=== PATIENT | male | born 1995 | race Caucasian/White ===

== ENCOUNTER 2021-09-07 14:25 | Emergency (ER) | payer SELFPAY ==
--- NOTE | 2021-09-07 14:29 | XRR_ITS ---
PROCEDURE INFORMATION: Exam: XR Chest Exam date and time: 09/07/2021 2:47 PM Age: 26 years old Clinical indication: Pain; Angina pectoris; Additional info: Chest pain TECHNIQUE: Imaging protocol: Radiologic exam of the chest. Views: 2 views. COMPARISON: No relevant prior studies available. FINDINGS: Lungs: Unremarkable. No consolidation. Pleural spaces: Unremarkable. No pleural effusion. No pneumothorax. Heart/Mediastinum: Unremarkable. No cardiomegaly. Bones/joints: Unremarkable. XR/XR chest 2V* [id number] IMPRESSION: No acute findings.
--- NOTE | 2021-09-07 14:42 | PC.NURSE ---
called to lobby no answer.
[2021-09-07 15:01] VITALS: BP 96/62; PULSE 66; RESP 16; TEMP 36.2; O2SAT 98; BMI 21.1
--- NOTE | 2021-09-07 15:02 | ECG_ITS ---
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 Measurements Intervals [place] Rate: 76 P: 18 WV: 129 QRS: 89 QRSD: 84 T: 67 QT: 357 QTc: 403 Interpretive Statements SINUS RHYTHM POSSIBLE RIGHT VENTRICULAR CONDUCTION DELAY [RSR (QR) IN V1/V2] EARLY REPOLARIZATION [ST ELEVATION WITH NORMALLY INFLECTED T-WAVE] No previous ECG available for comparison Electronically Signed On 09-07-2021 21:14:14 CDT by Ian Ray M.D. [id number]
[2021-09-07 15:28] LABS: Basophils % 0.3 %; Eosinophils # 0.3 10^3/uL (0.0-0.8); Eosinophils % 2.8 %; Hematocrit 41.7 % (42.0-52.0); Hemoglobin 13.7 g/dL (11.7-16.6); Lymphocytes # 3.4 10^3/uL (0.8-4.8); Lymphocytes % 37.2 %; Mean Corpuscular HGB Conc 32.9 g/dL (30.0-36.0); Mean Corpuscular Hemoglobin 28.4 pg (28.0-34.0); Mean Corpuscular Volume 86.5 fl (80-94); Mean Platelet Volume 9.8 fL (7.4-10.4); Monocytes # 0.7 10^3/uL (0.2-0.9); Monocytes % 8.1 %; Neutrophils # 4.64 10^3/uL (1.8-7.7); Neutrophils % 51.3 %; Nucleated Red Blood Cells % 0 %; Platelet Count 235 10^3/cmm (130-400); Red Blood Count 4.82 10^6/uL (4.1-5.3); Red Cell Distribution Width 11.8 % (12.1-15.1); White Blood Count 9.1 10^3/uL (4.0-10.0)
[2021-09-07 15:50] LABS: Troponin(5th) Baseline 6 ng/L (0-15)
[2021-09-07 15:53] LABS: Alanine Aminotransferase 7 U/L (0-41); Albumin Level 4.5 g/dL (3.5-5.2); Alkaline Phosphatase 86 IU/L (40-130); Anion Gap 15.9 (5-19); Aspartate Amino Transferase 10 U/L (0-40); Blood Urea Nitrogen 18 mg/dL (6-20); Calcium 9.5 mg/dL (8.5-10.5); Carbon Dioxide 23 mmol/L (22-29); Chloride 106 mmol/L (98-107); Glucose 98 mg/dL (65-115); Osmolality Calculated 294 mOsm/kg (285-295); Potassium 3.9 mmol/L (3.5-5.1); Sodium 141 mmol/L (136-145); Total Bilirubin 0.9 mg/dL (0.15-1.2); Total Protein 6.5 g/dL (6.6-8.7)
[2021-09-07 16:33] VITALS: BP 100/65; PULSE 72; RESP 16; O2SAT 99
--- NOTE | 2021-09-07 17:07 | ECG_ITS ---
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 Measurements Intervals [place] Rate: 62 P: 42 DE: 143 QRS: 82 QRSD: 88 T: 74 QT: 367 QTc: 373 Interpretive Statements SINUS RHYTHM EARLY REPOLARIZATION [ST ELEVATION WITH NORMALLY INFLECTED T-WAVE] Compared to ECG 09/07/2021 15:02:13 No significant changes Electronically Signed On 09-08-2021 6:47:41 CDT by Ian Ray M.D. [id number]
--- NOTE | 2021-09-07 17:38 | PC.NURSE ---
CALL TO LOBBY NO ANSWER
--- NOTE | 2021-09-07 17:42 | W.ED.GENADLT ---
HPI - General Adult General: Chief complaint: Chest Pain Stated complaint: Chest pain on left side Time Seen by Provider: 09/07/21 17:40 History of Present Illness: CC: Chest Pain HPI: This is a 26 yo patient hx of prior chest pain presenting to the ED complaining of acute sudden onset intermittent sharp chest pain since 9am. Patient tells me that she was sitting down when this all happened. Since then, he has had anterior chest pain. Patient says that about a year ago, he has had similar pain after lifting weights. Patient has a family history costochondritis. No associated with shortness of breath, chest pain or dyspnea on exertion. Pain is not tearing in nature and does not radiate to the back. Pain not associated with vomiting or PO intake. Denies any recent sympathomimetic drug use. Patient denies any cough. Denies palpitations, dysphagia, diaphoresis, radiation of pain to bilateral arms, jaw. Denies F/N/V/D. Patient denies any recent immobility, surgery, unilateral leg swelling, or prior PE. Patient denies any orthopnea. Onset: 9am ago Duration: ongoing since 9am Location: home Severity: mild/moderate Associated symptoms: Reports chest pain; Deny dyspnea, nausea, rash, palpitations or vomiting Review of Systems Const: Denies: fever(s) or chills Eyes: Denies: change in vision ENMT: Denies: mouth pain Card: Reports: chest pain; Denies: palpitations Resp: Denies: dyspnea or non-productive cough GI: Denies: abdominal pain, nausea, vomiting or diarrhea : Denies: dysuria Musc: Denies: extremity pain Skin/Breast: Denies: rash or new lesions Neuro: Denies: weakness in extremities Psych: Reports: other (Normal mood) Mathew/Lymph: Denies: easy bruising PFSH ED PFSH: Medical History Chest pain Social History Smoking and tobacco status: never smoked Alcohol intake: never Substance/Drug Use: never Physical Exam Const: COMMON NORMALS: alert HENMT: COMMON NORMALS: atraumatic HEAD & SCALP: atraumatic MOUTH: moist mucous membranes not abnormal Eye: COMMON NORMALS: EOMs intact bilaterally and conjunctivae normal CONJUNCTIVA: Yes conjunctivae normal Neck/C-Spine: COMMON NORMALS: full ROM and supple Resp: COMMON NORMALS: normal respiratory effort and clear to auscultation bilaterally AUSCULTATION: clear to auscultation bilaterally Cardio: COMMON NORMALS: regular rate RATE: regular rate GI: COMMON NORMALS: Soft to palpation and non-tender PALPATION: Yes Soft to palpation Extremity: COMMON NORMALS: full ROM Neuro: SENSORIUM/ORIENTATION: Yes alert MOTOR EXAM: No Abnormal motor strength present and Other motor observations present (no focal motor deficits) Psych: COMMON NORMALS: speech normal SPEECH: Yes normal speech MOOD & AFFECT: Yes euthymic mood Course Vital Signs: Vital signs: Vital Signs Temperature 97.2 F L 09/07/21 15:01 Pulse Rate 72 09/07/21 17:44 Respiratory Rate 16 09/07/21 17:44 Blood Pressure 109/78 09/07/21 17:44 Pulse Oximetry 100 09/07/21 17:44 Oxygen Delivery Me thod 09/07/21 17:44 MDM - General Adult Medical Decision Making [26]yo patient w/ hx of prior chest pain presenting to the ED with evaluation of new onset sharp chest pain intermittent since 9 AM this morning. Pain is reproducible on the inner border of the left pec. HDS, pulse 2+ radially bilaterally, no signs of fluid overload, AAOx3, neuro exam intact. Given History and Exam today I have no suspicion for ACS, Pneumothorax, Pneumonia, Pulmonary Embolus, Tamponade, Aortic Dissection or other emergent problems as a cause for this presentation. Workup: ECG, CXR, CBC, BMP, Troponin Interventions: T3 Findings: ECG: No overt evidence of STEMI, hyperacute T waves, localizable STD or T wave inversions. No evidence of Brugada?s sign, delta wave, epsilon wave, significantly prolonged QTc, or malignant arrhythmia. No Q waves. Other Labs unremarkable for emergent problems. CXR: Without PTX, PNA, or widened mediastinum Last Stress Test: never Last Heart Catheterization: never HEART Score: 0 PERC: Negative [5:58pm] On reassessment, the patient is HDS, no complaints of persistent chest pain in the ED after evaluation. ECG is non-ischemic. Workup today is unremarkable. Doubt ACS/PE or other emergent causes of chest pain. Doubt ACS/PE or other emergent causes of chest pain. No suspicion for aortic dissection given no widened mediastinum, 2+ upper extremity pulses, or tearing pain. No suspicion for PE given no pleuritic chest pain, recent immobilization or surgery hemoptysis, or other VTE risk factors. EKG is non-ischemic. XR normal. Rx: Tylenol 500mg PRN pain Disposition: Discharge. Strict return precautions discussed with the patient with full understanding. Advised patient to follow up promptly with a primary care provider in 24-48 hrs if the patient has persistent symptoms. Given return instructions for any crushing/tearing chest pain, focal weakness, syncope or any new or concerning issues. Lab Data : 09/07/21 15:15 09/07/21 15:15 Radiology Impressions Chest X-Ray 09/07/21 14:29 IMPRESSION: No acute findings. Laboratory Results WBC 9.1 10^3/uL (4.0-10.0) 09/07/21 15:15 RBC 4.82 10^6/uL (4.1-5.3) 09/07/21 15:15 Hgb 13.7 g/dL (11.7-16.6) 09/07/21 15:15 Hct 41.7 % (42.0-52.0) L 09/07/21 15:15 MCV 86.5 fl (80-94) 09/07/21 15:15 MCH 28.4 pg (28.0-34.0) 09/07/21 15:15 MCHC 32.9 g/dL (30.0-36.0) 09/07/21 15:15 RDW 11.8 % (12.1-15.1) L 09/07/21 15:15 Plt Count 235 10^3/cmm (130-400) 09/07/21 15:15 MPV 9.8 fL (7.4-10.4) 09/07/21 15:15 Neut % (Auto) 51.3 % 09/07/21 15:15 Lymph % (Auto) 37.2 % 09/07/21 15:15 [place] % (Auto) 8.1 % 09/07/21 15:15 Eos % (Auto) 2.8 % 09/07/21 15:15 Baso % (Auto) 0.3 % 09/07/21 15:15 Neut # (Auto) 4.64 10^3/uL (1.8-7.7) 09/07/21 15:15 Lymph # (Auto) 3.4 10^3/uL (0.8-4.8) 09/07/21 15:15 [place] # (Auto) 0.7 10^3/uL (0.2-0.9) 09/07/21 15:15 Eos # (Auto) 0.3 10^3/uL (0.0-0.8) 09/07/21 15:15 Baso # (Auto) 0.0 10^3/uL (0.0-0.1) 09/07/21 15:15 Nucleated RBC % (auto) 0 % 09/07/21 15:15 Nucleated RBCs # 0.0 /100WBC 09/07/21 15:15 Sodium 141 mmol/L (136-145) 09/07/21 15:15 Potassium 3.9 mmol/L (3.5-5.1) 09/07/21 15:15 Chloride 106 mmol/L (98-107) 09/07/21 15:15 Carbon Dioxide 23 mmol/L (22-29) 09/07/21 15:15 Anion Gap 15.9 (5-19) 09/07/21 15:15 BUN 18 mg/dL (6-20) 09/07/21 15:15 Creatinine 0.9 mg/dL (0.7-1.2) 09/07/21 15:15 GFR Calculation 102.0 mL/min (90-130) 09/07/21 15:15 Glucose 98 mg/dL (65-115) 09/07/21 15:15 Calculated Osmolality 294 mOsm/kg (285-295) 09/07/21 15:15 Calcium 9.5 mg/dL (8.5-10.5) 09/07/21 15:15 Total Bilirubin 0.9 mg/dL (0.15-1.2) 09/07/21 15:15 AST 10 U/L (0-40) 09/07/21 15:15 ALT 7 U/L (0-41) 09/07/21 15:15 Alkaline Phosphatase 86 IU/L (40-130) 09/07/21 15:15 Troponin T Baseline 6 ng/L (0-15) 09/07/21 15:15 Total Protein 6.5 g/dL (6.6-8.7) L 09/07/21 15:15 Albumin 4.5 g/dL (3.5-5.2) 09/07/21 15:15 Globulin 2.0 g/dL (1.3-4.6) 09/07/21 15:15 Discharge Plan Discharge Patient Disposition: Home Clinical Impression: Chest pain Condition: Stable Prescriptions: New acetaminophen 500 mg tablet 500 mg PO Q6H PRN (Reason: pain) 5 Days Qty: 20 0RF Discharge Orders: Discharge ED (Routine); Ordered 09/07/21 Ordered By: Rian Haines Discharge Diet: Advance as tolerated Discharge Activity: Increase activity as tolerated Patient Instructions: Chest Pain (ED) Activity Restrictions/Additional Instructions: Come back to the emergency room if your chest pain worsens, have any fever or chills, worsening shortness of breath, worsening exertional lightheadedness, or any new or concerning complaints. Stand Alone Forms: Work/School Release Coding Level of Care Code ED English Faculty Member for Sarah Fwd Exam Comprehensive
[2021-09-07 17:44] VITALS: BP 109/78; PULSE 72; RESP 16; O2SAT 100
[2021-09-07] MEDS: acetaminophen-codeine 300-30mg Tablet 1 TAB PO (18:03)
[2021-09-07 18:05] VITALS: BP 159/78; PULSE 82; RESP 16; O2SAT 100
[2021-09-07 18:47] LABS: Troponin 5 2HR 6.11 ng/L (0-15); Troponin 5 2HR Delta 0.11 ABS# (0-10)
== END 2021-09-07 18:06 | disposition home or self-care (01) ==
PROVIDERS: Family Medicine; Emergency Provider Emergency Medicine
DX: R07.9 Chest pain, unspecified (principal)
CPT/HCPCS: 71046; 80053; 84484; 85025; 93005; 99285

== ENCOUNTER 2022-06-20 18:42 | Emergency (ER) | payer SELFPAY ==
[2022-06-20 18:50] VITALS: BP 115/80; PULSE 84; TEMP 36.7; O2SAT 99; BMI 21.2
--- NOTE | 2022-06-20 18:53 | XRR_ITS ---
PROCEDURE INFORMATION: Exam: XR Chest Exam date and time: 06/20/2022 7:24 PM Age: 27 years old Clinical indication: Pain; Chest pressure; Additional info: Cp TECHNIQUE: Imaging protocol: Radiologic exam of the chest. Views: 1 view. COMPARISON: CR XR chest 2V* [id number] 09/07/2021 2:47 PM FINDINGS: Lungs: Unremarkable. No consolidation. Pleural spaces: Unremarkable. No pleural effusion. No pneumothorax. Heart/Mediastinum: Unremarkable. No cardiomegaly. Bones/joints: Unremarkable. XR/XR chest 1V portable [id number] IMPRESSION: No acute findings.
--- NOTE | 2022-06-20 18:53 | ECG_ITS ---
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 Measurements Intervals [place] Rate: 89 P: 9 DE: 120 QRS: 130 QRSD: 84 T: 91 QT: 323 QTc: 394 Interpretive Statements SINUS RHYTHM POSSIBLE RIGHT VENTRICULAR CONDUCTION DELAY [RSR (QR) IN V1/V2] LEFT POSTERIOR FASCICULAR BLOCK [QRS AXIS > 109, INFERIOR Q] MODERATE ST DEPRESSION [0.05+ mV ST DEPRESSION] INTERPRETATION BASED ON A DEFAULT AGE OF 40 YEARS Compared to ECG 09/07/2021 17:10:01 Left posterior fascicular block now present ST (T wave) deviation now present Early repolarization no longer present Electronically Signed On 06-21-2022 0:17:31 CDT by Ian Ray M.D. [id number] f
[2022-06-20 19:40] LABS: Basophils % 0.4 %; Eosinophils # 0.3 10^3/uL (0.0-0.8); Eosinophils % 2.6 %; Hematocrit 43.8 % (42.0-52.0); Hemoglobin 14.1 g/dL (11.7-16.6); Lymphocytes # 3.5 10^3/uL (0.8-4.8); Mean Corpuscular HGB Conc 32.2 g/dL (30.0-36.0); Mean Corpuscular Hemoglobin 27.6 pg (28.0-34.0); Mean Corpuscular Volume 85.9 fl (80-94); Mean Platelet Volume 9.9 fL (7.4-10.4); Monocytes # 0.8 10^3/uL (0.2-0.9); Monocytes % 8.1 %; Neutrophils # 5.27 10^3/uL (1.8-7.7); Neutrophils % 53.4 %; Nucleated Red Blood Cells % 0 %; Platelet Count 243 10^3/cmm (130-400); Red Cell Distribution Width 12.2 % (12.1-15.1); White Blood Count 9.9 10^3/uL (4.0-10.0)
[2022-06-20 20:01] LABS: Troponin(5th) Baseline 6 ng/L (0-15)
[2022-06-20 20:10] LABS: Alanine Aminotransferase 13 U/L (0-41); Albumin Level 4.7 g/dL (3.5-5.2); Alkaline Phosphatase 94 U/L (40-130); Anion Gap 14.5 (5-19); Aspartate Amino Transferase 12 U/L (0-40); Blood Urea Nitrogen 19 mg/dL (6-20); Carbon Dioxide 25 mmol/L (22-29); Chloride 106 mmol/L (98-107); Globulin 1.8 g/dL (1.3-4.6); Glomerular Filtration Rate 80.3 mL/min (90-130); Glucose 92 mg/dL (65-115); NT Pro B Type Natriuretic Pept 36 pg/mL (0-125); Osmolality Calculated 294 mOsm/kg (285-295); Potassium 4.5 mmol/L (3.5-5.1); Sodium 141 mmol/L (136-145); Total Bilirubin 0.3 mg/dL (0.15-1.2); Total Protein 6.5 g/dL (6.6-8.7)
--- NOTE | 2022-06-26 14:28 | DCPLANNER ---
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
== END 2022-06-20 21:46 | disposition left against medical advice (07) ==
PROVIDERS: Emergency Medicine; Emergency Provider Family Medicine
DX: Z53.21 Procedure and treatment not carried out due to patient leaving prior to being seen by health care provider (principal)
CPT/HCPCS: 36415; 71045; 80053; 83880; 84484; 85025; 93005

== ENCOUNTER 2022-07-21 15:33 | Emergency (ER) | payer SELFPAY ==
[2022-07-21 15:35] VITALS: BP 111/70; PULSE 88; RESP 15; O2SAT 98; BMI 21.2
--- NOTE | 2022-07-21 15:46 | ECG_ITS ---
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 Measurements Intervals [place] Rate: 76 P: 20 RI: 120 QRS: 76 QRSD: 81 T: 52 QT: 358 QTc: 404 Interpretive Statements SINUS RHYTHM WITH SINUS ARRHYTHMIA MODERATE ST DEPRESSION [0.05+ mV ST DEPRESSION] Compared to ECG 06/20/2022 18:46:53 Left posterior fascicular block no longer present ST (T wave) deviation still present Electronically Signed On 07-22-2022 4:57:45 CDT by Vivian Bennett M.D. [id number] f
--- NOTE | 2022-07-21 15:50 | XRR_ITS ---
PROCEDURE INFORMATION: Exam: XR Chest Exam date and time: 07/21/2022 4:03 PM Age: 27 years old Clinical indication: Pain; Chest pressure; Additional info: Cp TECHNIQUE: Imaging protocol: Radiologic exam of the chest. Views: 1 view. COMPARISON: CR (CHEST, ) 06/20/2022 7:24 PM FINDINGS: Lungs: Unremarkable. No consolidation. Pleural spaces: Unremarkable. No pleural effusion. No pneumothorax. Heart/Mediastinum: Unremarkable. No cardiomegaly. Bones/joints: Unremarkable. XR/XR chest 1V portable [id number] IMPRESSION: No acute findings.
--- NOTE | 2022-07-21 16:03 | W.ED.CHESTPA ---
HPI - Chest Pain General: Chief Complaint: Chest Pain Stated Complaint: tightness in chest, head pain, lips numb Time Seen by Provider: 07/21/22 15:50 History of Present Illness: Patient is a 27-year-old male who comes to the ED with chest pain. Symptoms started yesterday around 5 PM while he was at work. Patient says he was lifting some boxes and putting them on a shelf and he started developing chest pain on the left side of his chest. Pain worsens with any movement of his arms or torso. He was still having chest pain throughout the evening and into the night. He woke up and he still had the chest pain. He went to work and all the movement was causing worsening chest pain. Left side of chest is tender to the touch. Today he started developing some shortness of breath, headache, dizziness and tingling around his lower lip. His work told him to come here to the ED to be evaluated. Denies any cardiac history. Patient does admit that he is under a lot of stress currently in his life and asked me if this could be some chest pain due to his stress. denies any known allergies or any past allergic reactions. Denies any other injury or trauma to cause pain. Associated symptoms: Deny abdominal pain, dyspnea, fever(s), nausea, palpitations or vomiting Review of Systems Const: Denies: fever(s), chills or fatigue Eyes: Denies: change in vision or eye discomfort ENMT: Denies: throat pain, odynophagia, nasal discharge or nasal congestion Card: Reports: chest pain; Denies: palpitations, edema, swelling of feet/ankles, dyspnea on exertion or orthopnea Resp: Denies: dyspnea, productive cough or non-productive cough GI: Denies: abdominal pain, nausea, vomiting, diarrhea, constipation or hematochezia : Denies: flank pain, difficulty urinating, dysuria or hematuria Musc: Denies: neck pain, back pain or extremity swelling Skin/Breast: Denies: rash or new lesions Neuro: Denies: headache(s), numbness in extremities or weakness in extremities REPLACED BY [facility] ED PFSH: Medical History Chest pain Surgical History No pertinent past surgical history Social History Smoking and tobacco status: never smoked Alcohol intake: never Substance/Drug Use: never Physical Exam Const: COMMON NORMALS: patient oriented x3, healthy appearing and alert HENMT: COMMON NORMALS: normocephalic HEAD & SCALP: normocephalic MOUTH: Normal oral and palatal mucosa present THROAT: posterior oropharynx normal and uvula midline Neck/C-Spine: COMMON NORMALS: supple GENERAL: Yes normal visual inspection Chest: CHEST: Yes tenderness pectoral muscle on the left diffusely Resp: COMMON NORMALS: normal respiratory effort, No retractions, No use of accessory muscles and clear to auscultation bilaterally AUSCULTATION: clear to auscultation bilaterally Cardio: COMMON NORMALS: regular rate, regular rhythm, S1 normal heart sound present, S2 normal heart sound present, No gallops present (Cardio), No clicks present (Cardio), No murmurs present (Cardio) and Peripheral pulses 2+ throughout RATE: regular rate RHYTHM: regular rhythm HEART SOUNDS: S1 normal heart sound present and S2 normal heart sound present PERIPHERAL PULSES: Peripheral pulses 2+ throughout GI: COMMON NORMALS: Normal to inspection, nondistended, normoactive bowel sounds present, Soft to palpation, non-tender and no masses PALPATION: Yes Soft to palpation : COMMON NORMALS: Yes no CVA tenderness BLADDER/KIDNEY EXAM: Yes no CVA tenderness Back/Pelvis: COMMON NORMALS: no CVA tenderness Extremity: COMMON NORMALS: normal to inspection Neuro: COMMON NORMALS: patient oriented x3 SENSORIUM/ORIENTATION: Yes alert GAIT: Yes Normal gait present Skin: GENERAL SKIN EXAM: dry skin Course Vital Signs: Vital signs: Vital Signs Pulse Rate 88 07/21/22 15:35 Respiratory Rate 18 07/21/22 16:42 Blood Pressure 111/70 07/21/22 15:35 Pulse Oximetry 100 07/21/22 16:42 Oxygen Delivery Me thod Room Air 07/21/22 15:35 MDM - Chest Pain Medical Decision Making Patient is a 27-year-old male who comes to the ED with chest pain. Symptoms started yesterday around 5 PM while he was at work. Patient says he was lifting some boxes and putting them on a shelf and he started developing chest pain on the left side of his chest. Pain worsens with any movement of his arms or torso. He was still having chest pain throughout the evening and into the night. He woke up and he still had the chest pain. He went to work and all the movement was causing worsening chest pain. Left side of chest is tender to the touch. Today he started developing some shortness of breath, headache, dizziness and tingling around his lower lip. His work told him to come here to the ED to be evaluated. Denies any cardiac history. Patient does admit that he is under a lot of stress currently in his life and asked me if this could be some chest pain due to his stress. denies any known allergies or any past allergic reactions. Denies any other injury or trauma to cause pain. Vitals are stable. Patient appears nontoxic and in no acute distress. He has reproducible chest pain with palpation throughout the left pectoral muscle. His lungs are clear to auscultation bilaterally and the rest of exam is benign. Labs are all unremarkable. Troponin negative. Chest x-ray showed no acute findings. EKG showed normal sinus rhythm with no ST segment ovation or depression seen. Patient was given IV fluids, nausea meds, pain meds and steroid here in the ED. Given patient's chest pain is reproducible with palpation of the left pectoral muscle, he was diagnosed with noncardiac chest pain that is likely musculoskeletal in nature and could likely be due to stress as well. Stable for discharge home and told to follow-up with PCP in the next week for reevaluation. Return to ED precautions given. Patient understood and agreed with plan. Lab Data I reviewed the patient's lab results. 07/21/22 16:07 07/21/22 16:07 Radiology Impressions Chest X-Ray 07/21/22 15:50 IMPRESSION: No acute findings. Laboratory Results WBC 9.0 10^3/uL (4.0-10.0) 07/21/22 16:07 RBC 4.95 10^6/uL (4.1-5.3) 07/21/22 16:07 Hgb 14.2 g/dL (11.7-16.6) 07/21/22 16:07 Hct 42.7 % (42.0-52.0) 07/21/22 16:07 MCV 86.3 fl (80-94) 07/21/22 16:07 MCH 28.7 pg (28.0-34.0) 07/21/22 16:07 MCHC 33.3 g/dL (30.0-36.0) 07/21/22 16:07 RDW 12.0 % (12.1-15.1) L 07/21/22 16:07 Plt Count 234 10^3/cmm (130-400) 07/21/22 16:07 MPV 9.8 fL (7.4-10.4) 07/21/22 16:07 Neut % (Auto) 58.4 % 07/21/22 16:07 Lymph % (Auto) 30.0 % 07/21/22 16:07 [place] % (Auto) 8.8 % 07/21/22 16:07 Eos % (Auto) 2.0 % 07/21/22 16:07 Baso % (Auto) 0.6 % 07/21/22 16:07 Neut # (Auto) 5.23 10^3/uL (1.8-7.7) 07/21/22 16:07 Lymph # (Auto) 2.7 10^3/uL (0.8-4.8) 07/21/22 16:07 [place] # (Auto) 0.8 10^3/uL (0.2-0.9) 07/21/22 16:07 Eos # (Auto) 0.2 10^3/uL (0.0-0.8) 07/21/22 16:07 Baso # (Auto) 0.1 10^3/uL (0.0-0.1) 07/21/22 16:07 Nucleated RBC % (auto) 0 % 07/21/22 16:07 Nucleated RBCs # 0.0 /100WBC 07/21/22 16:07 Sodium 139 mmol/L (136-145) 07/21/22 16:07 Potassium 4.0 mmol/L (3.5-5.1) 07/21/22 16:07 Chloride 106 mmol/L (98-107) 07/21/22 16:07 Carbon Dioxide 21 mmol/L (22-29) L 07/21/22 16:07 Anion Gap 16.0 (5-19) 07/21/22 16:07 BUN 20 mg/dL (6-20) 07/21/22 16:07 Creatinine 0.9 mg/dL (0.7-1.2) 07/21/22 16:07 GFR Calculation 101.2 mL/min (90-130) 07/21/22 16:07 Glucose 68 mg/dL (65-115) 07/21/22 16:07 Calculated Osmolality 289 mOsm/kg (285-295) 07/21/22 16:07 Calcium 9.7 mg/dL (8.5-10.5) 07/21/22 16:07 Total Bilirubin 0.6 mg/dL (0.15-1.2) 07/21/22 16:07 AST 14 U/L (0-40) 07/21/22 16:07 ALT 10 U/L (0-41) 07/21/22 16:07 Alkaline Phosphatase 93 U/L (40-130) 07/21/22 16:07 Troponin T Baseline 6 ng/L (0-15) 07/21/22 16:07 Total Protein 6.3 g/dL (6.6-8.7) L 07/21/22 16:07 Albumin 4.6 g/dL (3.5-5.2) 07/21/22 16:07 Globulin 1.7 g/dL (1.3-4.6) 07/21/22 16:07 EKG Data EKG 1: EKG interpretation date: 07/21/22 Interpretation: Sinus rhythm, 76 bpm, no ST segment elevation or depression seen. Dr. Ruano Reviewed EKG and agreed with findings. Discharge Plan Discharge Patient Disposition: Home Clinical Impression: Non-cardiac chest pain Condition: Stable Discharge Orders: Discharge ED (Routine); Ordered 07/21/22 Ordered By: Augustin Fair Discharge Diet: Regular Discharge Activity: Increase activity as tolerated Patient Instructions: Stress (ED), Noncardiac Chest Pain (ED) Activity Restrictions/Additional Instructions: Follow-up with medical provider as directed in the next 5 to 7 days for reevaluation. Return to the ER or your medical provider if condition worsens. Please read and understand discharge instructions. Thank you for choosing [facility] for your healthcare needs today. Please realize this is an emergency room and that we are providing you with a medical screening exam and this may not be complete and all inclusive of all the testing and or work up that you may need to determine your ailment or severity of your illness. It is very important that you follow up as instructed or that you return to the Emergency Department should you have concerns or if your condition changes or worsens in any way. Coding Level of Care Code ED Wire Brusher for Sarah Loving
[2022-07-21 16:21] LABS: Basophils # 0.1 10^3/uL (0.0-0.1); Basophils % 0.6 %; Eosinophils # 0.2 10^3/uL (0.0-0.8); Hematocrit 42.7 % (42.0-52.0); Hemoglobin 14.2 g/dL (11.7-16.6); Lymphocytes # 2.7 10^3/uL (0.8-4.8); Mean Corpuscular HGB Conc 33.3 g/dL (30.0-36.0); Mean Corpuscular Hemoglobin 28.7 pg (28.0-34.0); Mean Corpuscular Volume 86.3 fl (80-94); Mean Platelet Volume 9.8 fL (7.4-10.4); Monocytes # 0.8 10^3/uL (0.2-0.9); Monocytes % 8.8 %; Neutrophils # 5.23 10^3/uL (1.8-7.7); Neutrophils % 58.4 %; Nucleated Red Blood Cells % 0 %; Platelet Count 234 10^3/cmm (130-400); Red Blood Count 4.95 10^6/uL (4.1-5.3)
[2022-07-21 16:41] VITALS: BP 117/71; PULSE 61; RESP 10; O2SAT 99
[2022-07-21 16:42] VITALS: RESP 18; O2SAT 100
[2022-07-21] MEDS: morphine 4 mg/mL SDV 1 mL IVP (16:42)
[2022-07-21] MEDS: ondansetron 2 mg/ML SDV 2 mL 4 MG IVP (16:42)
[2022-07-21] MEDS: methylPREDNISolone (DEPO) 80 MG/ML INJ 1 mL IM (16:43)
[2022-07-21] MEDS: sodium chloride 0.9% 1,000 ML 999 ML IV (16:44)
[2022-07-21 17:00] VITALS: BP 117/71; PULSE 69; RESP 17; O2SAT 98
[2022-07-21 17:00] LABS: Troponin(5th) Baseline 6 ng/L (0-15)
[2022-07-21 17:04] LABS: Alanine Aminotransferase 10 U/L (0-41); Albumin Level 4.6 g/dL (3.5-5.2); Alkaline Phosphatase 93 U/L (40-130); Aspartate Amino Transferase 14 U/L (0-40); Blood Urea Nitrogen 20 mg/dL (6-20); Calcium 9.7 mg/dL (8.5-10.5); Carbon Dioxide 21 mmol/L (22-29); Chloride 106 mmol/L (98-107); Globulin 1.7 g/dL (1.3-4.6); Glomerular Filtration Rate 101.2 mL/min (90-130); Glucose 68 mg/dL (65-115); Osmolality Calculated 289 mOsm/kg (285-295); Sodium 139 mmol/L (136-145); Total Bilirubin 0.6 mg/dL (0.15-1.2); Total Protein 6.3 g/dL (6.6-8.7)
[2022-07-21 17:30] VITALS: BP 117/71; PULSE 66; RESP 19; O2SAT 99
[2022-07-21 17:50] VITALS: BP 117/71; PULSE 66; RESP 19; O2SAT 99
--- NOTE | 2022-07-22 13:05 | DCPLANNER ---
TCM called patient due to no primary care physician - no answer at this time.
== END 2022-07-21 17:51 | disposition home or self-care (01) ==
PROVIDERS: Emergency Provider Physician Assistant
DX: R07.89 Other chest pain (principal); R06.02 Shortness of breath; R51.9 Headache, unspecified; R42 Dizziness and giddiness; R20.2 Paresthesia of skin
CPT/HCPCS: 36415; 71045; 80053; 84484; 85025; 93005; 96372; 96374; 96375; 99285; J1040; J2270; J2405; J7030